=== PATIENT | female | born 1985 | race Caucasian/White ===

== ENCOUNTER 2017-11-30 19:04 | Emergency (ER) | payer OTHER ==
[~2017-11-30] VITALS: Ht 177.8 cm; Wt 174.2 kg
[2017-11-30 19:13] VITALS: BP 139/91
--- NOTE | 2017-11-30 19:21 | NUR ---
PT. AMBULATED TO ER BED 10
--- NOTE | 2017-11-30 19:25 | NUR ---
32 Y/O F W/C/O LUMP AND PAIN TO L BREAST, AND DISCHARGE FROM AFFECTED BREAST X 2 WKS. PT STATES WAS SEEN BY PMD X 1 WK AND SCHEDULED A MAMMOGRAM IN 1 MTH, BUT WAS SENT HOME WITH NO MEDS FOR PAIN. MED HX, X 2, GALLBLADDER REMOVED, AND STOMACH ULCERS. NO OTHER S/S OF DISTRESS NOTED. ER MD MADE AWARE.
--- NOTE | 2017-11-30 19:55 | NUR ---
ER MD AT BEDSIDE EVALUATING PT AT BEDSIDE.
[2017-11-30] MEDS ORDERED: KETOROLAC 60 MG/2 ML VIAL IM ONE (20:10)
--- NOTE | 2017-11-30 20:29 | NUR ---
ULTRASOUND AT BEDSIDE.
--- NOTE | 2017-11-30 22:05 | NUR ---
PT RESTING IN BED AWATING FOR ULTRASOUND RESULTS, STATES HER PAIN IS GONE. ER MD MADE AWARE.
[2017-11-30] MEDS ORDERED: LIDOCAINE VISCOUS 2% 20 ML UDC PO ONE (23:15)
[2017-11-30] MEDS ORDERED: DICYCLOMINE HCL LIQUID 10 MG/5 ML UDC PO ONE (23:15)
[2017-11-30] MEDS ORDERED: ALUMINUM HYD/MAG/SIMETHICONE 30 ML UDC PO ONE (23:15)
[2017-12-01 00:23] VITALS: BP 122/62
--- NOTE | 2017-12-01 00:23 | NUR ---
Patient discharged with v/s stable. Written and verbal after care instructions given and explained. Patient alert, oriented and verbalized understanding of instructions. Ambulatory with steady gait. All questions addressed prior to discharge. ID band removed. Patient advised to follow up with PMD. Rx of KEFLEX, AND NORCO 5MG given. Patient educated on indication of medication including possible reaction and side effects. Opportunity to ask questions provided and answered.
== END 2017-12-01 00:23 | disposition home or self-care (01) ==
LOC: MED 19:04
DX: N61.0 Mastitis without abscess (principal); Z90.49 Acquired absence of other specified parts of digestive tract
CPT/HCPCS: 76641; 87070; 87075; 87205; 96372; 99285; J1885; Q0092; 87186

== ENCOUNTER 2021-02-08 21:39 | Emergency (ER) | payer OTHER ==
[~2021-02-08] VITALS: Ht 180.3 cm; Wt 166.5 kg
[2021-02-08 21:57] VITALS: BP 143/96
--- NOTE | 2021-02-08 22:06 | NUR ---
PT AMBULATED TO BED 04
--- NOTE | 2021-02-08 22:10 | NUR ---
Florentino gomez in EDM - 02/08/21 at 2217 by [email or web address] TO LOWER BACK35 Y/O FEMALE CAME TO THE ED C/O LOWER ABDOMINAL PAIN/CRAMPING THAT RADIATE
--- NOTE | 2021-02-08 22:17 | NUR ---
35 Y/O FEMALE CAME TO THE ED C/O LOWER ABDOMINAL PAIN/CRAMPING AND SOME PRESSURE THAT RADIATE TO LOWER BACK. PT IS 19 WEEKS , CONSISTENT WITH CARE. PT STATES THAT PAIN IS 7/10, DENIES ANY VAGINAL BLEEDING. A&OX4, DENIES N/V. PMH: GESTATIONAL DIABETES, UPPER GI BLEED NKA G-4 T-2 P-1 A-0 L-2 SX: GALLBLADDER REMOVAL, 2 C-SECTIONS
[2021-02-08] MEDS ORDERED: DOPPLER MC ONE (22:50)
[2021-02-08] MEDS ORDERED: ONDANSETRON 4 MG/2 ML VIAL IVP ONE (23:40)
[2021-02-08] MEDS ORDERED: NACL 0.9% 1,000 ML IV ONE (23:40)
[2021-02-08 23:55] LABS: BASOPHILS % (AUTO) 0.3 % (0.0-2.0); EOSINOPHILS # (AUTO) 0.1 K/uL (0-0.4); EOSINOPHILS % (AUTO) 1.1 % (0.0-4.0); HEMATOCRIT 34.7 % (36-48); HEMOGLOBIN 11.5 g/dL (12.0-16.0); LYMPHOCYTES # (AUTO) 2.2 K/uL (2.5-16.5); LYMPHOCYTES % (AUTO) 23.4 % (20.5-51.1); MEAN CORPUSCULAR HEMOGLOBIN 25 pg (27-31); MEAN CORPUSCULAR HGB CONC 33 g/dL (33-37); MEAN CORPUSCULAR VOLUME 75.1 fL (80-94); MONOCYTES # (AUTO) 0.7 K/uL (0.8-1.0); NEUTROPHILS # (AUTO) 6.5 K/uL (1.8-7.7); NEUTROPHILS % (AUTO) 68.2 % (42.2-75.2); PLATELET COUNT (AUTO) 226 K/uL (140-450); RED BLOOD CELL COUNT(AUTO) 4.62 MIL/uL (4.20-5.40); RED CELL DISTRIBUTION WIDTH 13.9 % (11.6-13.7); WHITE BLOOD COUNT (AUTO) 9.5 K/uL (4.8-10.8)
[2021-02-09 00:16] LABS: ANION GAP 14.3 (8-16); CARBON DIOXIDE 24.7 mmol/L (21-32); CREATININE 0.6 mg/dL (0.6-1.3); TOTAL BILIRUBIN 0.3 mg/dL (0.0-1.0)
[2021-02-09 00:26] LABS: APPEARANCE,URINE CLEAR (CLEAR); BILIRUBIN,URINE NEGATIVE (NEGATIVE); BLOOD, URINE NEGATIVE (NEGATIVE); COLOR,URINE YELLOW (YELLOW); LEUKOCYTE ESTERASE ,URINE NEGATIVE (NEGATIVE); NITRITE, URINE NEGATIVE (NEGATIVE); PH,URINE 6.5 (5.0-9.0); UGLUCOSE 1+ (NEGATIVE)
[2021-02-09] MEDS ORDERED: ONDA-24 SL (01:12)
[2021-02-09 01:45] VITALS: BP 143/96
== END 2021-02-09 01:45 | disposition home or self-care (01) ==
LOC: MED 21:39
DX: O26.892 Other specified pregnancy related conditions, second trimester (principal); R10.30 Lower abdominal pain, unspecified; Z3A.19 19 weeks gestation of pregnancy; Z79.899 Other long term (current) drug therapy; Z98.890 Other specified postprocedural states
CPT/HCPCS: 36415; 76805; 80053; 81003; 81025; 84702; 85025; 96361; 96374; 99284; J2405; J7030; 99283

== ENCOUNTER → 2022-05-25 | Emergency (ER) | payer OTHER ==
[~2022-05-25] VITALS: Ht 154.9 cm; Wt 172.8 kg
[~2022-05-25] MED LIST: ACET-8386 PO; CIPR500T4 PO; KETOROLAC 30 MG/ML VIAL IM ONE; KETOROLAC 30 MG/ML VIAL ONE; MECLIZINE 25 MG TAB PO ONE; MORPHINE SULFATE 4 MG/ML SYR IM ONE; ONDA-188 SL; ONDA8TAB87 PO
[2022-05-25 20:42] VITALS: BP 150/67
--- NOTE | 2022-05-25 20:48 | NUR ---
PT TO LOBBY FOLLOWING URINE COLLECTION
--- NOTE | 2022-05-25 23:12 | NUR ---
PT TO BED 5
--- NOTE | 2022-05-25 23:55 | NUR ---
36 BIB BY FOR HEADACHE X5 DAYS, PT STATES N/V/. BLEEDING X 30 DAYS. PT STATES HEADACHE STARTS AT TEMPLES AND GOES ACROSS HEAD. PT STATES SHE TOOK ZOFRAN TODAY. DM IS MANAGED WELL PT IS A&O X 4 , AMBULATORY, AND 8/10 PAIN [id number] GESTATIONAL DIABETES. UPPPER GI BLEED, GALL STONES CHOLECTECTOMY, 3 C SECTIONS RX: INSULIN , OZEMPIC, METFORMIN, GLIPIZIDE
--- NOTE | 2022-05-26 00:50 | NUR ---
SEEN AND EXAMINED BY PALAK , WITH ORDERS AND CARRIED OUT.
[2022-05-26 01:11] LABS: BASOPHILS % (AUTO) 0.4 % (0.0-2.0); EOSINOPHILS # (AUTO) 0.2 K/uL (0-0.4); EOSINOPHILS % (AUTO) 1.6 % (0.0-4.0); HEMATOCRIT 37.3 % (36-48); HEMOGLOBIN 12.3 g/dL (12.0-16.0); LYMPHOCYTES # (AUTO) 2.8 K/uL (2.5-16.5); LYMPHOCYTES % (AUTO) 27.8 % (20.5-51.1); MEAN CORPUSCULAR HEMOGLOBIN 24 pg (27-31); MEAN CORPUSCULAR HGB CONC 33 g/dL (33-37); MEAN CORPUSCULAR VOLUME 72.6 fL (80-94); MONOCYTES # (AUTO) 0.6 K/uL (0.8-1.0); MONOCYTES % (AUTO) 6.1 % (1.7-9.3); NEUTROPHILS # (AUTO) 6.5 K/uL (1.8-7.7); NEUTROPHILS % (AUTO) 64.1 % (42.2-75.2); PLATELET COUNT (AUTO) 285 K/uL (140-450); RED BLOOD CELL COUNT(AUTO) 5.14 MIL/uL (4.20-5.40); RED CELL DISTRIBUTION WIDTH 14.8 % (11.6-13.7); WHITE BLOOD COUNT (AUTO) 10.2 K/uL (4.8-10.8)
[2022-05-26 01:18] LABS: APPEARANCE,URINE SL CLOUDY (CLEAR); BILIRUBIN,URINE NEGATIVE (NEGATIVE); BLOOD, URINE NEGATIVE (NEGATIVE); COLOR,URINE YELLOW (YELLOW); LEUKOCYTE ESTERASE ,URINE NEGATIVE (NEGATIVE); NITRITE, URINE NEGATIVE (NEGATIVE); PH,URINE 6.5 (5.0-9.0); UGLUCOSE NEGATIVE (NEGATIVE)
[2022-05-26 01:55] LABS: ALBUMIN 3.5 g/dL (3.4-5.0); ANION GAP 13.6 (8-16); CARBON DIOXIDE 27.7 mmol/L (21-32); CREATININE 0.7 mg/dL (0.6-1.3); POTASSIUM 4.3 mmol/L (3.5-5.1); TOTAL BILIRUBIN 0.3 mg/dL (0.0-1.0)
--- NOTE | 2022-05-26 02:00 | NUR ---
PT STATES SHE WANTS TO GET GOING HOME. WANT TO SPEAK TO DR TO SEE HER OPTIONS
--- NOTE | 2022-05-26 03:15 | NUR ---
PT STATES SHE FEELS "HEAVY" . PT IS HOOKED UP TO HEART MONITOR AND SPO02. ALL VSS
[2022-05-26 07:12] VITALS: BP 120/72
--- NOTE | 2022-05-26 07:12 | NUR ---
Patient discharged with v/s stable. Written and verbal after care instructions given and explained. Patient alert, oriented and verbalized understanding of instructions. Ambulatory with steady gait. All questions addressed prior to discharge. ID band removed. Patient advised to follow up with PMD. Rx of HYDROCODON 5-325 given. Opportunity to ask questions provided and answered.
== END | disposition home or self-care (01) ==
LOC: MED 20:27
DX: R51.9 Headache, unspecified (principal); R42 Dizziness and giddiness; R53.83 Other fatigue; Z79.899 Other long term (current) drug therapy; Z98.890 Other specified postprocedural states
CPT/HCPCS: 36415; 70450; 80053; 81025; 85025; 93005; 96372; 99285; J1885; J2270; J8597

== ENCOUNTER 2022-06-03 14:03 | Emergency (ER) | payer OTHER ==
[~2022-06-03] VITALS: Ht 180.3 cm; Wt 169.6 kg
[~2022-06-03 14:03] MED LIST changes: -CIPR500T4 PO; -KETOROLAC 30 MG/ML VIAL IM ONE; -KETOROLAC 30 MG/ML VIAL ONE; -MECLIZINE 25 MG TAB PO ONE; -MORPHINE SULFATE 4 MG/ML SYR IM ONE; -ONDA8TAB87 PO
[2022-06-03 14:07] VITALS: BP 155/83
--- NOTE | 2022-06-03 14:15 | NUR ---
AMBULATED TO BED 9
--- NOTE | 2022-06-03 14:27 | NUR ---
DR FIGUEREDO AT BEDSIDE FOR EVAL
--- NOTE | 2022-06-03 14:28 | NUR ---
36 Y/O FEMALE BIB SELF C/O HEADACHE AND LIGHTHEADEDNESS TODAY, DENIES SYNCOPE. PT STATES THAT SHE WENT TO URGENT CARE FOR HIGH BS AND WAS REFERRED TO ED DUE TO TACHYCARDIA AND HIGH BS, HR 96, BS 159 IN TRIAGE. PATIENT REPORTS INCREASE IN THIRST AND URINATION TODAY. C/O MIGUEL CONSTANT, THROBBING AND SHARP PMH: DM, SLEEP APNEA NKA
[2022-06-03] MEDS ORDERED: MORPHINE SULFATE 4 MG/ML SYR IM ONE (14:35)
[2022-06-03] MEDS ORDERED: ONDANSETRON 4 MG ODT PO ONE (14:35)
--- NOTE | 2022-06-03 14:39 | NUR ---
PT AMBULATED WITH STEADY GAIT TO BATHROOM
[2022-06-03] MEDS ORDERED: CIPR500T4 PO (14:42)
[2022-06-03] MEDS ORDERED: ONDA8TAB87 PO (14:42)
[2022-06-03] MEDS ORDERED: ACET-8386 PO (14:42)
--- NOTE | 2022-06-03 15:07 | NUR ---
Patient discharged with v/s stable. Written and verbal after care instructions given and explained. Patient alert, oriented and verbalized understanding of instructions. Ambulatory with steady gait. All questions addressed prior to discharge. ID band removed. Patient advised to follow up with PMD. Rx of ZOFRAN, NORCO 5-325, CIPRO given. Patient educated on indication of medication including possible reaction and side effects. Opportunity to ask questions provided and answered.
== END 2022-06-03 15:07 | disposition home or self-care (01) ==
LOC: MED 14:03
DX: N39.0 Urinary tract infection, site not specified (principal); R51.9 Headache, unspecified; Z90.49 Acquired absence of other specified parts of digestive tract; Z98.890 Other specified postprocedural states
CPT/HCPCS: 81002; 81025; 96372; 99283; J2270; Q0162

== ENCOUNTER 2022-07-28 13:00 | Emergency (ER) | payer OTHER ==
[~2022-07-28] VITALS: Ht 180.3 cm; Wt 173.7 kg
[~2022-07-28 13:00] MED LIST changes: +CIPR500T4 PO; +ONDA8TAB87 PO
[2022-07-28 13:08] VITALS: BP 146/97
--- NOTE | 2022-07-28 13:14 | NUR ---
Pt w/c assisted to lobby.
[2022-07-28] MEDS ORDERED: KETOROLAC 60 MG/2 ML VIAL IM ONE (13:25)
--- NOTE | 2022-07-28 14:05 | NUR ---
wc assisted to bed 9
[2022-07-28] MEDS ORDERED: HYDROcodone/APAP 7.5/325 MG 1 TAB PO ONE (14:10)
--- NOTE | 2022-07-28 14:26 | NUR ---
c/o bilateral foot pain s/p mechanical fall after tripping down the stairs. left digit pain and right ankle pain 10/10. no swelling, no redness noted. fiber heel piece shaper less than 3 seconds, cms intact.denies any meds prior to arrival. PMH/Meds: DM2 - metformin, glipizide Sx: , cholecystectomy, D&C, tubal ligation allergy: NSAIDs
[2022-07-28] MEDS ORDERED: DICL100G31 TP (14:53)
[2022-07-28] MEDS ORDERED: ACET-8386 PO (14:53)
[2022-07-28 15:21] VITALS: BP 146/97
--- NOTE | 2022-07-28 15:23 | NUR ---
Patient discharged with v/s stable. Written and verbal after care instructions given and explained FOR FOOT SPRAIN. Patient alert, oriented and verbalized understanding of instructions. Ambulatory with to car. All questions addressed prior to discharge. ID band removed. Patient advised to follow up with PMD. Rx of HYDROCODON-ACETAMINOPHEN 5-325 AND DICLOFENAC SODIUM FOR PAIN SENT. Patient educated on indication of medication including possible reaction and side effects. Opportunity to ask questions provided and answered. PT AMBULATED TO CAR WITH CRUTCHES.
--- NOTE | 2022-07-28 15:34 | NUR ---
PTS 2ND AND 3RD DIGIT WERE STUART TAPED TOGETHER ON PTS LEFT FOOT AND GIVEN CRUTCHES. +CMS. PT WAS ABLE TO DEMONSTRATE SAFE USE OF CRUTCHES
== END 2022-07-28 15:23 | disposition home or self-care (01) ==
LOC: MED 13:00
DX: S93.602A Unspecified sprain of left foot, initial encounter (principal); S93.601A Unspecified sprain of right foot, initial encounter; S93.401A Sprain of unspecified ligament of right ankle, initial encounter; E11.9 Type 2 diabetes mellitus without complications; Z79.899 Other long term (current) drug therapy; W10.8XXA Fall (on) (from) other stairs and steps, initial encounter; Y93.01 Activity, walking, marching and hiking; Y92.89 Other specified places as the place of occurrence of the external cause; Y99.8 Other external cause status
CPT/HCPCS: 73610; 73630; 73660; 99284; J1885

== ENCOUNTER 2022-11-18 16:16 | Emergency (ER) | payer OTHER ==
[~2022-11-18] VITALS: Ht 180.3 cm; Wt 168.7 kg
[~2022-11-18 16:16] MED LIST changes: -ACET-8386 PO; +ACET-8905 PO; +DICL100G31 TP
[2022-11-18 16:18] VITALS: BP 134/87
[2022-11-18] MEDS ORDERED: HYDROcodone/APAP 10/325 MG 1 TAB TAB PO PRN ×2 (17:25→17:50)
[2022-11-18 18:05] LABS: BASOPHILS # (AUTO) 0.1 K/uL (0.00-0.22); BASOPHILS % (AUTO) 0.3 % (0.0-2.0); EOSINOPHILS # (AUTO) 0.1 K/uL (0-0.4); EOSINOPHILS % (AUTO) 0.5 % (0.0-4.0); HEMATOCRIT 40.4 % (36-48); HEMOGLOBIN 13.1 g/dL (12.0-16.0); LYMPHOCYTES # (AUTO) 2.3 K/uL (2.5-16.5); LYMPHOCYTES % (AUTO) 13.8 % (20.5-51.1); MEAN CORPUSCULAR HEMOGLOBIN 23 pg (27-31); MEAN CORPUSCULAR HGB CONC 32 g/dL (33-37); MEAN CORPUSCULAR VOLUME 71.8 fL (80-94); MONOCYTES # (AUTO) 0.9 K/uL (0.8-1.0); MONOCYTES % (AUTO) 5.3 % (1.7-9.3); NEUTROPHILS # (AUTO) 13.3 K/uL (1.8-7.7); NEUTROPHILS % (AUTO) 80.1 % (42.2-75.2); PLATELET COUNT (AUTO) 275 K/uL (140-450); RED BLOOD CELL COUNT(AUTO) 5.64 MIL/uL (4.20-5.40); WHITE BLOOD COUNT (AUTO) 16.6 K/uL (4.8-10.8)
[2022-11-18 18:31] LABS: ALBUMIN 3.8 g/dL (3.4-5.0); ANION GAP 13.6 (8-16); CARBON DIOXIDE 26.8 mmol/L (21-32); CREATININE 0.9 mg/dL (0.6-1.3); POTASSIUM 4.4 mmol/L (3.5-5.1); TOTAL BILIRUBIN 0.3 mg/dL (0.0-1.0)
[2022-11-18 18:34] LABS: APPEARANCE,URINE CLEAR (CLEAR); BILIRUBIN,URINE NEGATIVE (NEGATIVE); BLOOD, URINE TRACE-I (NEGATIVE); COLOR,URINE YELLOW (YELLOW); LEUKOCYTE ESTERASE ,URINE NEGATIVE (NEGATIVE); NITRITE, URINE POSITIVE (NEGATIVE); UGLUCOSE >=1000 (NEGATIVE)
--- NOTE | 2022-11-18 18:51 | NUR ---
Female Floor Coverings Installer accompanied female patient for Pelvic Exam.
[2022-11-18 19:30] LABS: RBC,URINE 0-5 /HPF (0-5); WBC,URINE 0-5 /HPF (0-5)
[2022-11-18 19:31] LABS: TRICHOMONAS,URINE None Seen /HPF (None Seen)
[2022-11-18 19:33] LABS: CALCIUM OXALATE CRYSTALS,UR None Seen /HPF (None Seen); OTHER CRYSTALS,URINE None Seen /HPF (None Seen); TRIPLE PHOSPHATE CRYSTAL,UR None Seen /HPF (None Seen); URIC ACID CRYSTALS,URINE None Seen /HPF (None Seen); URINE AMORPHOUS URATE None Seen /HPF (None Seen); YEAST,URINE None Seen /HPF (None Seen)
[2022-11-18 19:36] LABS: OTHER CASTS, URINE None Seen /LPF (None Seen)
[2022-11-18] MEDS ORDERED: HYDR-5018 PO (19:50)
[2022-11-18] MEDS ORDERED: CIPR500T4 PO (19:50)
--- NOTE | 2022-11-18 20:04 | NUR ---
PT CLEARED FOR D/C. PT PROVIDED D/C AND MEDICAITON INSTRUCTIONS. RX OF CIPRO AND NORCO PROVIDED.
== END 2022-11-18 20:04 | disposition home or self-care (01) ==
LOC: MED 16:16
DX: R10.2 Pelvic and perineal pain (principal); R21 Rash and other nonspecific skin eruption
CPT/HCPCS: 36415; 80053; 81001; 85025; 87070; 87086; 87210; 99283

== ENCOUNTER 2022-12-11 21:09 | Emergency (ER) | payer OTHER ==
[~2022-12-11] VITALS: Ht 180.3 cm; Wt 159.7 kg
[~2022-12-11 21:09] MED LIST changes: +FLUC150T PO
[2022-12-11 21:25] VITALS: BP 139/71
--- NOTE | 2022-12-11 21:25 | NUR ---
TO BED AMBULATORY
[2022-12-11] MEDS ORDERED: ACETAMINOPHEN EXTRA STRENGTH 500 MG TAB PO ONE (22:40)
[2022-12-11 22:59] LABS: BASOPHILS % (AUTO) 0.4 % (0.0-2.0); EOSINOPHILS # (AUTO) 0.1 K/uL (0-0.4); EOSINOPHILS % (AUTO) 1.6 % (0.0-4.0); HEMATOCRIT 37.8 % (36-48); HEMOGLOBIN 12.4 g/dL (12.0-16.0); LYMPHOCYTES # (AUTO) 2.2 K/uL (2.5-16.5); LYMPHOCYTES % (AUTO) 31.4 % (20.5-51.1); MEAN CORPUSCULAR HEMOGLOBIN 23 pg (27-31); MEAN CORPUSCULAR HGB CONC 33 g/dL (33-37); MEAN CORPUSCULAR VOLUME 70.8 fL (80-94); MONOCYTES # (AUTO) 0.5 K/uL (0.8-1.0); MONOCYTES % (AUTO) 7.2 % (1.7-9.3); NEUTROPHILS # (AUTO) 4.2 K/uL (1.8-7.7); NEUTROPHILS % (AUTO) 59.4 % (42.2-75.2); PLATELET COUNT (AUTO) 283 K/uL (140-450); RED BLOOD CELL COUNT(AUTO) 5.34 MIL/uL (4.20-5.40); RED CELL DISTRIBUTION WIDTH 14.9 % (11.6-13.7)
[2022-12-11 23:01] LABS: APPEARANCE,URINE CLEAR (CLEAR); BILIRUBIN,URINE NEGATIVE (NEGATIVE); BLOOD, URINE 2+ (NEGATIVE); COLOR,URINE YELLOW (YELLOW); LEUKOCYTE ESTERASE ,URINE NEGATIVE (NEGATIVE); NITRITE, URINE NEGATIVE (NEGATIVE); UGLUCOSE 3+ (NEGATIVE)
[2022-12-11 23:19] LABS: RBC,URINE 11-20 (MOD) /HPF (0-5); WBC,URINE 0-5 /HPF (0-5)
[2022-12-11 23:57] LABS: ANION GAP 13.7 (8-16); CARBON DIOXIDE 27.9 mmol/L (21-32); CREATININE 0.8 mg/dL (0.6-1.3); POTASSIUM 4.6 mmol/L (3.5-5.1)
[2022-12-12] MEDS ORDERED: HYD1C TP (00:57)
[2022-12-12] MEDS ORDERED: ACET-8905 PO (00:57)
[2022-12-12 01:32] VITALS: BP 129/79
--- NOTE | 2022-12-12 01:32 | NUR ---
Patient discharged with v/s stable. Written and verbal after care instructions given and explained. Patient alert, oriented and verbalized understanding of instructions. Ambulatory with steady gait. All questions addressed prior to discharge. ID band removed. Patient advised to follow up with PMD. Rx of [place] and Hydrocortisone Cream given. Patient educated on indication of medication including possible reaction and side effects. Opportunity to ask questions provided and answered.
[2022-12-12] MEDS ORDERED: METR-435 PO (02:38)
== END 2022-12-12 01:32 | disposition home or self-care (01) ==
LOC: MED 21:09
DX: N76.0 Acute vaginitis (principal); B96.89 Other specified bacterial agents as the cause of diseases classified elsewhere; E11.9 Type 2 diabetes mellitus without complications; Z79.899 Other long term (current) drug therapy; Z79.891 Long term (current) use of opiate analgesic; Z79.2 Long term (current) use of antibiotics; Z88.6 Allergy status to analgesic agent
CPT/HCPCS: 36415; 80048; 81001; 81025; 85025; 87210; 87491; 99284

== ENCOUNTER 2023-01-22 18:32 | Emergency (ER) | payer OTHER ==
[~2023-01-22] VITALS: Ht 180.3 cm; Wt 169.6 kg
[~2023-01-22 18:32] MED LIST changes: +HYD1C TP; +METR-435 PO
[2023-01-22 18:40] VITALS: BP 142/85
--- NOTE | 2023-01-22 18:50 | NUR ---
37/F WALKED IN D/T POSITIVE TB BLOOD RESULT NOTIFIED BY PCP. PT REPORTS HAVING BLOOD DRAWN TO TEST TB 1 WK AGO FOR PT'S SON'S SCHOOL TRIP REQUIREMENT. PT DENIES ANY SYMPTOMS AT THIS TIME. VITALS STABLE, AFEBRILE. DENIES COUGH. PMH: DM
--- NOTE | 2023-01-22 18:55 | NUR ---
XR AT BEDSIDE
--- NOTE | 2023-01-22 19:31 | NUR ---
Patient resting in bed, A/Ox4, chest rise and fall symmetrical, no c/o pain or s/s of distress, on monitor.
[2023-01-22 20:29] VITALS: BP 135/74
--- NOTE | 2023-01-22 20:38 | NUR ---
Patient discharged with v/s stable. Written and verbal after care instructions given and explained. Patient verbalized understanding. Ambulatory with steady gait. All questions addressed prior to discharge. Advised to follow up with PMD.
== END 2023-01-22 20:38 | disposition home or self-care (01) ==
LOC: MED 18:32
DX: A15.9 Respiratory tuberculosis unspecified (principal); E11.9 Type 2 diabetes mellitus without complications; Z79.4 Long term (current) use of insulin; Z79.899 Other long term (current) drug therapy; Z90.49 Acquired absence of other specified parts of digestive tract; Z98.890 Other specified postprocedural states
CPT/HCPCS: 71045; 99283

== ENCOUNTER 2023-05-29 18:16 | Emergency (ER) | payer OTHER ==
[~2023-05-29] VITALS: Ht 180.3 cm; Wt 162.9 kg
[2023-05-29 18:49] VITALS: BP 161/91; PULSE 94; RESP 20; TEMP 98.3; O2SAT 94
[2023-05-29 22:20] VITALS: BP 161/91; PULSE 94; RESP 20; TEMP 98.3; O2SAT 94
== END 2023-05-29 22:20 | disposition left against medical advice (07) ==
LOC: MED 18:16
DX: R10.2 Pelvic and perineal pain (principal); Z53.21 Procedure and treatment not carried out due to patient leaving prior to being seen by health care provider
CPT/HCPCS: 81025; 99281

== ENCOUNTER 2023-12-06 10:20 | Emergency (ER) | payer OTHER ==
[~2023-12-06] VITALS: Ht 180.3 cm; Wt 165.1 kg
[2023-12-06 10:50] VITALS: BP 121/67; PULSE 102; RESP 19; TEMP 98.6; O2SAT 98
[2023-12-06] MEDS ORDERED: MORPHINE SULFATE 4 MG/ML SYR ONE (12:04)
[2023-12-06] MEDS ORDERED: ONDANSETRON 4 MG ODT ONE (12:04)
[2023-12-06] MEDS: ONDANSETRON 4 MG ODT PO ONE (12:06)
[2023-12-06] MEDS: MORPHINE SULFATE 4 MG/ML SYR IM ONE (12:08)
[2023-12-06] MEDS ORDERED: ACET-503 PO (12:12)
[2023-12-06] MEDS ORDERED: OMEP40EC23 PO (12:12)
[2023-12-06 12:41] VITALS: BP 117/68; PULSE 88; RESP 19; TEMP 98.6; O2SAT 98
== END 2023-12-06 12:41 | disposition home or self-care (01) ==
LOC: MED 10:20
DX: R10.13 Epigastric pain (principal); R11.2 Nausea with vomiting, unspecified; E11.9 Type 2 diabetes mellitus without complications; F03.90 Unspecified dementia, unspecified severity, without behavioral disturbance, psychotic disturbance, mood disturbance, and anxiety; Z90.49 Acquired absence of other specified parts of digestive tract; Z98.890 Other specified postprocedural states; Z79.899 Other long term (current) drug therapy; Z88.6 Allergy status to analgesic agent
CPT/HCPCS: 96372; 99283; J2270; Q0162; 81002; 81025